=== PATIENT | female | born 1985 | race Hispanic/Latino ===

== ENCOUNTER → 2018-03-29 | Outpatient (CLI) | payer MEDICAID ==
--- NOTE | 2018-03-30 16:07 | US ---
EXAM DESCRIPTION: Breast,Left: Ultrasound CLINICAL HISTORY: 32 yearsFemaleBREAST LUMP COMPARISON: Digital diagnostic tomosynthesis bilateral breasts on the same visit. TECHNIQUE: Transcutaneous scanning of the left breast utilizing venegas-scale and Doppler modes. Scanning performed by the synthetic resin operator and Dr. Pierre. FINDINGS: Scanning was performed at the site of the palpable mass 1:00 position left breast, 10 cm from the nipple breast tissue is mostly fibroglandular with minimal fatty echotexture. Hypoechoic mass with relatively circumscribed margins near the skin surface. Wider than tall orientation with posterior acoustic enhancement. Minimal vascularity by Doppler. Dimensions are 2.0 x 1.8 x 1.2 cm. No definite calcifications. No other dominant solid masses or distinct cysts. No parenchymal edema. No overlying skin changes and no abnormal vascularity. IMPRESSION: 1. Bi-Rads Category 3: Probably Benign Findings. 2. Please refer to digital diagnostic bilateral breast tomosynthesis and report on this visit. The FINDINGS and the FOLLOW-UP plan were reviewed in person with the patient after the examination. Written communication explaining the IMPRESSION and FOLLOW-UP will be mailed to the patient and referring care provider. Electronically signed by: Samson Pierre MD 03/30/2018 4:05 PM [facility]
--- NOTE | 2018-03-30 16:35 | MAM ---
EXAM DESCRIPTION: 3D Diagnostic, Bilateral: Digital Mammography CLINICAL HISTORY: 32 yearsFemaleBREAST LUMP . Palpable mass upper outer quadrant posterior left breast. No personal or family history of breast cancer. Childbirth. Premenopausal. No HRT. Lifetime risk of developing breast cancer (Tyrer-Cuzick model) percentage is not calculated with patient age less than 35. COMPARISON: Targeted left breast ultrasound as part of this examination. . TECHNIQUE: Bilateral CC LM MLO projection full-field images, digital mammographic tomosynthesis technique. Bilateral 2-D digital full-field MLO images. CAD not utilized. FINDINGS: The breast parenchymal density pattern is: Heterogeneously dense breast tissue, which may obscure small masses. No skin thickening or nipple retraction skin marker located at the posterior third of the left breast upper outer quadrant where masses palpated. Predominantly circumscribed mass is located in the posterior third of the breast approximately 8 cm from the nipple. Dimensions are approximately 2.2 x 1.9 x 1.7 cm. No skin thickening. No abnormal calcifications. No focal, stellate mass or density, focal asymmetry , and no suspicious microcalcifications right breast. ULTRASOUND: Scanning was performed at the site of the palpable mass 1:00 position left breast, 10 cm from the nipple breast tissue is mostly fibroglandular with minimal fatty echotexture. Hypoechoic mass with relatively circumscribed margins near the skin surface. Wider than tall orientation with posterior acoustic enhancement. Minimal vascularity by Doppler. Dimensions are 2.0 x 1.8 x 1.2 cm. No definite calcifications. No other dominant solid masses or distinct cysts. No parenchymal edema. No overlying skin changes and no abnormal vascularity. IMPRESSION: BI-RADS CATEGORY: 3 - PROBABLY BENIGN. Management: Short interval (6-month) follow-up targeted left breast ultrasound and continued surveillance diagnostic digital left breast mammography if indicated by the ultrasound study.. The FINDINGS and the FOLLOW-UP plan were reviewed in person with the patient after the examination. Written communication explaining the IMPRESSION and FOLLOW-UP will be mailed to the patient and referring care provider. Electronically signed by: Samson Pierre MD 03/30/2018 4:32 PM [employer]URITY MANAGEMENT SPECIALIST
== END ==
LOC: MAMMO 14:29
PROVIDERS: ATTEND Obstetrics & Gynecology
DX: N63.20 Unspecified lump in the left breast, unspecified quadrant (principal)
CPT/HCPCS: 76641; 77066; G0279